=== PATIENT | female | born 1940 | race Caucasian/White ===

== ENCOUNTER 2017-04-16 10:58 | Day surgery (SDC) | payer MEDICARE, BC ==
--- NOTE | 2017-04-08 04:14 | HP ---
PREOPERATIVE HISTORY AND PHYSICAL: DATE OF SURGERY/ADMISSION: 04/16/17 [facility] DATE OF OFFICE VISIT/ENCOUNTER: 04/04/17 ATTENDING SURGEON: Rosaura Dodd MD * (DICTATED BY VETO BYERS) PROCEDURE: Right ring finger trigger finger release. CHIEF COMPLAINT: Right ring finger triggering. HISTORY OF PRESENT ILLNESS: This is a 77-year-old female, who complains of triggering of her right ring finger that has been ongoing for 3 months. She has had a right middle finger trigger finger in the past, many years ago, done in [place] on which she ended up having a release performed. She has had prior to that she had a cortisone injection which was not very helpful, so for her current problem of right ring finger triggering, she would like to proceed directly to surgery. She states that the finger locks up, which causes her minimal pain, but it is quite bothersome. She denies any associated numbness or tingling. PAST MEDICAL HISTORY: 1. Discoid lupus. 2. GERD with history of a hiatal hernia. 3. Leg cramps. 4. Chronic diarrhea. 5. Sleep apnea for which she uses a CPAP. PAST SURGICAL HISTORY: 1. Cholecystectomy. 2. Bladder suspension. 3. Hysterectomy. 4. Hiatal hernia repair. 5. Tonsillectomy and adenoidectomy. 6. Right long finger trigger finger release. CURRENT MEDICATIONS: 1. Hydroxyzine HCL 25 mg one to two tablets q.6 to 8 hours p.r.n. pruritus. 2. Lomotil 2.5/0.025 mg 1 tab t.i.d. p.r.n. 3. Omeprazole 20 mg daily. 4. Plaquenil 200 mg 2 daily. 5. Qualaquin 324 mg daily. 6. Tizanidine HCL 4mg daily. 7. Triamcinolone acetonide 0.1% apply twice daily. 8. VESIcare 10 mg daily. ALLERGIES: SULFA antibiotics cause hives and itching. FAMILY MEDICAL HISTORY: Noncontributory. SOCIAL HISTORY: The patient is retired. She is a former smoker. She quit in 1984, prior to that she smoked for 22 years up to a pack a day. She denies recreational drug use and alcohol use. REVIEW OF SYSTEMS: General: Negative for fevers, chills, or night sweats. No known anesthesia problems. HEENT: Negative for headache, lightheadedness, or syncopal episodes. Integumentary: Positive for discoid lupus. Negative for abrasions or open wounds. Cardiothoracic: Negative for hypertension, chest pain, palpitations, or edema. Pulmonary: Positive for sleep apnea with CPAP. Negative for shortness of breath with exertion, chronic cough or COPD. GI: Positive for chronic diarrhea and GERD. Negative for nausea, vomiting, constipation. : Positive for urinary urgency. Negative for history of UTIs or kidney problems. Musculoskeletal: Positive for current complaint, otherwise negative. Neurologic: Negative for paresthesias, numbness, history of seizures , stroke, or epilepsy. Endocrine: Negative for diabetes or thyroid issues. Hematologic: Negative for easy bruising, anemia, excessive bleeding, or history of DVT. Infectious Disease: Negative for history of MRSA, hepatitis C, or HIV. PHYSICAL EXAMINATION GENERAL: Well-developed, well-nourished, 77-year-old female, in no acute distress. VITAL SIGNS: Height 5 feet 2 inches, weight 170 pounds, pulse rate 68, blood pressure 115/78. HEENT: Normocephalic, atraumatic. Pupils are equal, round, and reactive to light and accommodation. Extraocular movements are intact. NECK: Supple. No palpable lymph nodes. Throat is clear. PULMONARY: Lungs are clear to auscultation bilaterally. No wheezes, rales, or rhonchi. CARDIOVASCULAR: Regular rate and rhythm. S1 and S2. No murmurs, rubs, or gallops. No edema. ABDOMEN: Positive bowel sounds, soft, nontender. NEUROLOGICAL: Alert and oriented x3. Cranial nerves II through XII are intact. Sensation is intact to light touch. MUSCULOSKELETAL: On exam of her right hand, she has tenderness of the A1 jayson of the ring finger and the finger locks when she flexes it. She has full extension of the finger. Skin is intact. Neurovascular function is intact. She has a well- healed surgical incision over the A1 jayson of the middle finger from her prior surgery. IMPRESSION: Right ring finger trigger finger. PLAN: The patient is scheduled to undergo a right ring finger trigger finger release with Dr. Dodd on 04/16/17. She will return to the office 10 to 14 days postop for followup and suture removal. A prescription for Ultracet was e- scribed to the patient's pharmacy for postoperative pain management. VETO BYERS [id number]/[facility] #: [id number] [facility]
[~2017-04-16 10:58] MED LIST: Acetaminophen TAB* 325 MG PO PRN; Buffered Lidocaine 0.9% SYRIN* 5 ML/SYR SYRINGE INTRADERM ONE; Famotidine IV* 10 MG/ML 2 ML (20 mg) IV ONE; Lidocaine 1% INJ* 10 MG/ML 30 ML SDV ONE; oxyCODONE TAB* 5 MG TAB PO PRN
[2017-04-16] MEDS ORDERED: fentaNYL* 50 MCG/ML 2 ML VIAL (100 MCG VIAL) ONE (11:38)
[2017-04-16] MEDS ORDERED: Midazolam* 1 MG/ML 5 ML VIAL (5 MG) ONE (11:38)
[2017-04-16] MEDS ORDERED: Famotidine IV* 10 MG/ML 2 ML (20 mg) ONE (11:38)
[2017-04-16] MEDS ORDERED: Lidocaine 2% PF * 5 ML VIAL ONE (11:57)
[2017-04-16] MEDS ORDERED: Propofol* 10 MG/ML 20 ML BTL IV PUSH ONE (11:57)
[2017-04-16] MEDS ORDERED: Ondansetron INJ* 2 MG/ML VIAL ONE (11:57)
[2017-04-16] MEDS ORDERED: Ketorolac INJ* 30 MG/ML 1 ML VIAL ONE (11:57)
[2017-04-16 13:29] VITALS: BP 156/78
--- NOTE | 2017-04-17 01:37 | OP ---
DATE OF OPERATION: 04/16/17 [facility] DATE OF : 40 SURGEON: Rosaura Dodd MD CLERK MANAGER: VETO Allen. ANESTHESIOLOGIST: Bailey Street MD ANESTHESIA: Local MAC. PRE-OP DIAGNOSIS: Right ring finger trigger finger. POST-OP DIAGNOSIS: Right ring finger trigger finger. OPERATIVE PROCEDURE: Right ring finger trigger release. ESTIMATED BLOOD LOSS: Zero. TOURNIQUET TIME: About 5 minutes. INDICATIONS FOR PROCEDURE: Gail is a 77-year-old female with triggering and locking of her right ring finger. She has failed conservative treatment. She presents for trigger finger release. DESCRIPTION OF PROCEDURE: The patient was brought to the operating room, was given a sedation anesthetic and a local infiltration of 10 cc of 1% plain lidocaine in the palm of her right hand. Skin of her right hand and forearm was prepped and draped in the usual sterile fashion. The hand and forearm were exsanguinated and the tourniquet elevated to 250 mmHg. A transverse incision was made centered over the A1 jayson of the right ring finger. We dissected bluntly through the subcutaneous tissue. were placed and then they were secured by the executive assistant to general counsel, Vika Bustamante, and the A1 jayson was then incised longitudinally completely releasing the flexor tendons. There was some mild abrasion of the dorsal aspects of the flexor tendon. The wound was irrigated and skin edges reapproximated with 4-0 nylon suture. Wound was dressed with Xeroform, 4x4, Webril, and an Barrie wrap. The patient tolerated the procedure well and brought to the recovery room in good condition. [id number]/[facility] #: [id number] [facility]
== END 2017-04-16 13:40 | disposition home or self-care (01) ==
LOC: OREAST 10:58
PROVIDERS: ATTEND Orthopaedic Surgery
DX: M65.341 Trigger finger, right ring finger (principal); Z87.891 Personal history of nicotine dependence; G47.33 Obstructive sleep apnea (adult) (pediatric); M19.90 Unspecified osteoarthritis, unspecified site
CPT/HCPCS: J1885; J2001; J2250; J2405; J2704; J3010